=== PATIENT | female | born 1960 | race Two or more races ===

== ENCOUNTER 2021-01-17 06:00 | Day surgery (SDC) | payer BC ==
[2021-01-16 09:35] LABS: BASOPHILS # (AUTO) 0.1 X10'3 (0-0.2); BASOPHILS % (AUTO) 0.7 % (0-1); EOSINOPHILS # (AUTO) 0.3 X10'3 (0-0.9); EOSINOPHILS % (AUTO) 3.9 % (0-6); HEMATOCRIT 33.4 % (35.0-45.0); HEMOGLOBIN 10.7 g/dl (12.0-16.0); LYMPHOCYTES # (AUTO) 1.5 X10'3 (1.1-4.8); LYMPHOCYTES % (AUTO) 17.9 % (21-51); MEAN CORPUSCULAR HEMOGLOBIN 27.1 PG (27.0-31.0); MEAN CORPUSCULAR HGB CONC 32.1 g/dL (33.0-36.5); MEAN CORPUSCULAR VOLUME 84.5 FL (78-98); MEAN PLATELET VOLUME 8.6 FL (7.4-10.4); MONOCYTES # (AUTO) 0.5 X10'3 (0-0.9); MONOCYTES % (AUTO) 6.3 % (2-12); NEUTROPHILS % (AUTO) 71.2 % (42-75); PLATELET COUNT 284 X10'3 (140-440); RED BLOOD COUNT 3.96 X10'6 (4.20-5.60); RED CELL DISTRIBUTION WIDTH 16.2 % (11.5-14.5); WHITE BLOOD COUNT 8.5 X10'3 (4.5-11.0)
[2021-01-16 09:43] LABS: ALBUMIN 3.7 G/DL (3.4-5.0); ANION GAP 8 (8-16); BLOOD UREA NITROGEN 30 MG/DL (7-18); BUN/CREATININE RATIO 22.6 (6.6-38.0); CALCIUM 8.4 MG/DL (8.5-10.1); CHLORIDE 106 MMOL/L (99-107); CREATININE 1.33 MG/DL (0.40-0.90); GLUCOSE 96 MG/DL (70-104); POTASSIUM 4.8 MMOL/L (3.5-5.1); SODIUM 139 MMOL/L (135-145); TOTAL CARBON DIOXIDE 25.1 MMOL/L (24-32); eGFR 40 ML/MIN
[2021-01-16 09:47] LABS: PARTIAL THROMBOPLASTIN TIME 36 SECONDS (22-32)
[2021-01-17] VITALS (11 sets, daily range): BP systolic 94–137; BP diastolic 54–93
[~2021-01-17] VITALS: Ht 152.4 cm; Wt 150.0 kg
[2021-01-17] MEDS ORDERED: diphenhydrAMINE 25mg capsule PO PRN (06:20)
[2021-01-17] MEDS ORDERED: LORazepam 0.5 MG tablet PO PRN (06:20)
[2021-01-17] MEDS ORDERED: verapamil 2.5 mg/ml inj IV ONE (06:42)
[2021-01-17] MEDS ORDERED: fentaNYL/PF 50MCG/1 ML 2ML syringe ONE (06:43)
[2021-01-17] MEDS ORDERED: heparin 1,000unit/ml 10ml vial 10 ML ONE (06:43)
[2021-01-17] MEDS ORDERED: LIDOcaine 1% (10mg/ml)w/preservative injection 20ml MDV ONE (06:43)
[2021-01-17] MEDS ORDERED: midazolam 1 mg/ML 2ml injection ONE ×2 (06:43→08:29)
[2021-01-17] MEDS ORDERED: nitroGLYCERIN-Tridil 50MG/D5W 250 ML IV ONE (06:43)
[2021-01-17] MEDS ORDERED: heparin 1,000 UNITS/NS 500ml 500 ML ONE ×3 (06:43→06:44)
[2021-01-17] MEDS ORDERED: iohexol 350MG/ML 100ml bottle IV ONE (06:44)
[2021-01-17] MEDS ORDERED: ARIP2TAB20 PO (07:14)
[2021-01-17] MEDS ORDERED: FURO20TA4 PO (07:14)
[2021-01-17] MEDS ORDERED: ZOLP10TA PO (07:14)
[2021-01-17] MEDS ORDERED: CETI10CA PO (07:14)
[2021-01-17] MEDS ORDERED: OXYB10TA30 PO (07:14)
[2021-01-17] MEDS ORDERED: POTA10TA36 PO (07:14)
[2021-01-17] MEDS ORDERED: OMEP40CA21 PO (07:14)
[2021-01-17] MEDS ORDERED: MELO-102 PO (07:14)
[2021-01-17] MEDS ORDERED: ESCI20TA39 PO (07:14)
[2021-01-17] MEDS ORDERED: LISI20TA28 PO (07:14)
[2021-01-17] MEDS ORDERED: CHOL400C2 PO (07:14)
[2021-01-17] MEDS ORDERED: iohexol 350 MG/ML 50ML vial IV ONE (07:24)
[2021-01-17 09:16] LABS: ISTAT HGB ART 10.9 g/dl (12.0-16.0); ISTAT Hct ART 32 %PCV (35-48); ISTAT O2 SATURATION ARTERIAL 95 % (95-98); ISTAT SOURCE ART
[2021-01-17 09:18] LABS: ISTAT Hct MIX 33 %PCV (35-48); ISTAT O2 SATURATION MIX VENOUS 66 % (60-80); ISTAT SOURCE VEN
[2021-01-17] MEDS ORDERED: normal saline 1000ml 1,000 ML IV ONE (09:40)
[2021-01-17] MEDS ORDERED: HYDROcodone/acetaminophen 5mg/325mg tablet PO PRN (09:45)
[2021-01-17] MEDS ORDERED: HYDROcodone/acetaminophen 10/325mg tab PO PRN (09:45)
== END 2021-01-17 16:00 | disposition home or self-care (01) ==
LOC: SSTAY O 06:00
PROVIDERS: ATTEND Internal Medicine Cardiovascular Disease
DX: R94.39 Abnormal result of other cardiovascular function study (principal); R06.02 Shortness of breath; I25.10 Atherosclerotic heart disease of native coronary artery without angina pectoris; I10 Essential (primary) hypertension; I27.20 Pulmonary hypertension, unspecified; G47.33 Obstructive sleep apnea (adult) (pediatric); Z79.899 Other long term (current) drug therapy; Z90.710 Acquired absence of both cervix and uterus; Z98.890 Other specified postprocedural states; Z96.653 Presence of artificial knee joint, bilateral; Z82.49 Family history of ischemic heart disease and other diseases of the circulatory system; Z83.3 Family history of diabetes mellitus; Z83.6 Family history of other diseases of the respiratory system
CPT/HCPCS: 36415; 76937; 80048; 82803; 85014; 85025; 85610; 85730; 93005; 93460; 99152; C1760; C1769; C1894; J1644; J2001; J2250; J3010; Q0163; Q9967; 99153; A4620; A5120; A6258; C1751; J3490